=== PATIENT | female | born 1960 | race Caucasian/White ===

== ENCOUNTER 2020-02-27 08:12 | Outpatient (CLI) | payer BC, SELFPAY ==
--- NOTE | ~2020-02-27 | MM_ITS ---
EXAMINATION: MM scrn jose implant BI w nithin HISTORY: Screening mammogram TECHNIQUE: Craniocaudal and mediolateral oblique 3-D tomosynthesis images with implant displacement a nd synthetic 2-D images were generated. Craniocaudal and mediolateral oblique views of the breasts wi thout implant displacement were obtained using full field digital mammography. CAD analysis was submi tted and interpreted. COMPARISON: Comparison to multiple prior studies sequentially, with oldest reviewed study dated 02/16. BREAST PARENCHYMAL COMPOSITION: The breasts are heterogeneously dense, which may obscure small masses . FINDINGS: There are bilateral subpectoral silicone implants. There is no evidence of suspicious mass, calcification, or architectural distortion to suggest malignancy in either breast. There has been no suspicious interval change. IMPRESSION: 1. No mammographic evidence of malignancy. 2. Recommend routine screening mammography in one year. BI-RADS Category 1: Negative Reviewed, dictated and finalized at location A.
== END 2020-02-27 08:13 | disposition home or self-care (01) ==
PROVIDERS: PCP Family Medicine; Visit Provider Family Medicine
DX: Z12.31 Encounter for screening mammogram for malignant neoplasm of breast (principal)
CPT/HCPCS: 77063; 77067

== ENCOUNTER 2020-06-10 09:47 | Emergency (ER) | payer BC, SELFPAY ==
--- NOTE | ~2020-06-10 | US_ITS ---
EXAMINATION: US venous doppler LE RT DATE: 06/10/2020 11:49 INDICATION: Right lower limb pain. TECHNIQUE: Grayscale ultrasound images without and with compression and Doppler ultrasound images of the right lower extremity veins were obtained. COMPARISON: None. FINDINGS: The visualized portions of right common femoral vein, profunda (deep) femoral vein, femoral vein, pop liteal vein, peroneal veins, posterior tibial veins, and greater saphenous vein outflow are patent. IMPRESSION: 1. No deep venous thrombosis. Reviewed, dictated and finalized at location A.
--- NOTE | ~2020-06-10 | CT_ITS ---
EXAMINATION: CTA chest PE abdomen pel DATE: 06/10/2020 12:04 CDT INDICATION: Epigastric chest pain. Elevated d-dimer. TECHNIQUE: Computed tomographic angiography (CTA) of the chest, abdomen and pelvis was performed with 100 mL Omnipaque-350 intravenous contrast. The dose-length product was 379.10 mGy-cm. Maximum intens ity projection 3D-reconstructions of the aorta and other arteries were constructed by the Bilna t on a separate workstation. Automated exposure control and iterative reconstruction technique were e mployed. COMPARISON: Chest x-ray dated 06/19/2019 FINDINGS: Study is technically adequate without evidence for pulmonary embolism. Heart size normal. N o significant pleural or pericardial effusion. There are breast implants. No endobronchial lesions. N o suspicious pulmonary nodules or masses. No osteolytic or osteoblastic lesions. No thoracic lymphade nopathy. There is hepatomegaly. The spleen, pancreas, adrenal glands and kidneys are unremarkable. Gallbladder is present. There is a small periumbilical fat-containing hernia. No free air or free fluid. There i s lower lumbar spondylosis. IMPRESSION: 1. No acute abnormality of the chest, abdomen or pelvis. 2: Hepatomegaly. Reviewed, dictated and finalized at location A.
[2020-06-10 10:13] VITALS: BP 130/69; PULSE 60; RESP 16; TEMP 36.8; O2SAT 100
[2020-06-10 10:44] LABS: Basophils Percent Auto 0.4 % (0.2-1.2); Eosinophils Absolute Auto 0.2 K/mm3 (0-0.3); Eosinophils Percent Auto 3.3 % (0-4.4); Hematocrit 38.4 % (37.0-47.0); Hemoglobin 12.8 g/dL (12.0-15.0); Immature Granulocyte Absolute 0.01 K/mm3 (0.00-0.031); Immature Granulocyte Percent A 0.2 % (0-0.5); Lymphocytes Absolute Auto 1.62 K/mm3 (0.9-3.2); Lymphocytes Percent Auto 33.3 % (18.3-44.2); Mean Corpuscular HGB Conc 33.3 g/dl (32-36); Mean Corpuscular Hemoglobin 31.8 pg (26-34); Mean Corpuscular Volume 95.3 fl (80-100); Mean Platelet Volume 9.6 fl (7.4-10.4); Monocytes Absolute Auto 0.7 K/mm3 (0.1-0.6); Neutrophils Absolute Auto 2.3 K/mm3 (1.3-6.7); Neutrophils Percent Auto 47.8 % (45.5-73.1); Platelet Count Result 188 k/mm3 (150-375); Red Blood Count 4.03 M/mm3 (4.2-5.4); White Blood Count 4.9 K/mm3 (4.5-10.0)
[2020-06-10 10:49] LABS: Add Urine Microscopic? NO; Appearance Urine Clear (Clear); Bilirubin Urine Negative (Negative); Blood Urine Negative (Negative); Color Urine Yellow (Yellow); Glucose Urine UA Negative (Negative); Ketones Urine Negative (Negative); Leukocyte Esterase Ur Negative LEU/UL (Negative); Nitrate Urine Negative (Negative); Protein Urine Negative (Negative); Specific Grav Ur 1.009 (1.001-1.035); Squamous Epithelial Cell Urine Rare /hpf (Few); Urobilinogen Urine Negative mg/dL (<2.0)
[2020-06-10 10:56] LABS: Alanine Aminotransferase 22 U/L (4-35); Albumin Level 4.4 g/dL (3.5-5.1); Alkaline Phosphatase 52 U/L (38-126); Anion Gap 7 mmol/L (8-16); Aspartate Amino Transferase 26 U/L (14-36); Bilirubin,Total 0.5 mg/dL (0.2-1.3); Blood Urea Nitrogen 11 mg/dL (7-17); Calcium 9.5 mg/dL (8.4-10.2); Carbon Dioxide 30 mmol/L (22-30); Chloride 99 mmol/L (98-107); Estimated CRCL calculation 56 ml/min; Estimated Glomerular Filt Rate > 60; Glucose 97 mg/dL (65-105); Lipase 180 U/L (23-300); Potassium 3.9 mmol/L (3.4-5.0); Sodium 136 mmol/L (137-145)
--- NOTE | 2020-06-10 10:57 | ECG_ITS ---
Measurements Intervals [place] Rate: 56 P: 86 VA: 142 QRS: 17 QRSD: 95 T: 42 QT: 405 QTc: 393 Interpretive Statements SINUS BRADYCARDIA POSSIBLE LEFT ATRIAL ENLARGEMENT INCOMPLETE RIGHT BUNDLE BRANCH BLOCK BASELINE WANDER- I, II, AVR, AVL BORDERLINE ECG Electronically Signed On 06-10-2020 11:32:25 CDT by Maximo Perea D.O.
--- NOTE | 2020-06-10 11:00 | ED.ABDPAIN ---
HPI - Abdominal Pain General Chief Complaint: Abdominal Pain Stated Complaint: Achey & hurting all over Time Seen by Provider: 06/10/20 10:49 Source: patient Mode of arrival: ambulatory Limitations: no limitations History of Present Illness HPI narrative: This is a 60 year old female that presents to the ER for abdominal pain x 3 days. Reports 5 days ago she started having right foot pain. Reports the pain then radiated up into her right thigh. Reports then she started having pain in her hips bilaterally. No known injuries or trauma. Reports this pain is been intermittent. Reports a couple of days ago she started having some abdominal pain which is sharp and constant. Reports she was having diarrhea and now is constipated. Eating does make it a little worse, so she has not been eating much. Denies fever, vomiting, dysuria, hematuria, numbness, or weakness. Related Data Allergies Allergy/AdvReac Type Severity Reaction Status Date / Time No Known Allergies Allergy Verified 03/21/20 11:28 Review of Systems Review of Systems: Narrative: CONSTITUTIONAL: Denies fever CARDIOVASCULAR: Denies chest pain, or edema. RESPIRATORY: Reports dyspnea. GASTROINTESTINAL: Reports abdominal pain and diarrhea. Denies nausea, vomiting GENITOURINARY: Denies dysuria or hematuria. SKIN: Denies rash MUSCULOSKELETAL: Reports back pain, joint pain, and myalgia. NEUROLOGIC: Denies numbness, or weakness. All systems reviewed & are unremarkable except as noted in HPI and below PMFSH Social History Social History Smoking status: Never smoker Alcohol intake: current Gender identity (if verbalized by the patient): Female Exam Narrative: Exam Narrative: GENERAL: Well-appearing, well-nourished, and in no acute distress. HEAD: Normocephalic, atraumatic. EYES: EOMI. CHEST: Clear to auscultation. No respiratory distress. No wheezes rales or rhonchi HEART: Regular rate and rhythm. No murmur heard. Normal peripheral pulses. ABDOMEN: Soft, nondistended, normal active bowel sounds. Mild tenderness to palpation in the epigastrium, without guarding EXTREMITIES: Normal range of motion. No edema or erythema. Normal DP pulses SKIN: Warm, dry, no rash. NEURO: No focal deficits. Alert and oriented x3. PSYCH: Normal mood and affect Course Vital Signs Vital signs: Vital Signs Temperature 98.2 F 06/10/20 10:13 Pulse Rate 60 06/10/20 10:13 Respiratory Rate 16 06/10/20 10:13 Blood Pressure 130/69 06/10/20 10:13 Pulse Oximetry 100 06/10/20 10:13 Temperature 98.2 F 06/10/20 10:13 Pulse Rate 60 06/10/20 10:13 Respiratory Rate 16 06/10/20 10:13 Blood Pressure 130/69 06/10/20 10:13 Pulse Oximetry 100 06/10/20 10:13 MDM - Abdominal Pain MDM Narrative Medical decision making narrative: Patient presents to the emergency department for epigastric/chest pain. Also was reporting some pain in the right leg. She is afebrile and nontoxic-appearing. Vitals are normal. CBC and metabolic panel without concerning findings. UA without evidence of infection. BNP is normal. Troponin is negative. D-dimer was elevated so right lower extremity venous Doppler and CTA of the chest was obtained. No evidence of DVT. CTA of the chest/abd/pelvic is without acute abnormality of the chest, abdomen or pelvis. Patient was updated on case findings. Patient is stable and felt appropriate for further outpatient evaluation. She was given warnings to return to the ER Lab Data Attestation: I reviewed the patient's lab results. Result diagrams: 06/10/20 10:36 06/10/20 10:36 Labs: Lab Results 06/10/20 06/10/20 06/10/20 Range/Units 10:36 10:36 10:36 WBC 4.9 (4.5-10.0) K/mm3 RBC 4.03 L (4.2-5.4) M/mm3 Hgb 12.8 (12.0-15.0) g/dL Hct 38.4 (37.0-47.0) % MCV 95.3 (80-100) fl MCH 31.8 (26-34) pg MCHC 33.3 (32-36) g/dl RDW 13.0
[2020-06-10 11:14] LABS: INR 1.1; Prothrombin Time 13.4 Seconds (11.1-14.7)
[2020-06-10 11:15] LABS: Partial Thromboplastin Time 30.3 SECONDS (22.3-36.8)
[2020-06-10 11:17] LABS: D Dimer 0.64 ug/mL (<0.48)
[2020-06-10 11:25] LABS: Troponin I < 0.012 ng/mL (0.000-0.034)
[2020-06-10 11:26] LABS: NT Pro B Type Natriuretic Pept 43 PG/ML (5-100)
[2020-06-10] MEDS: FAMOTIDINE 20 MG/2 ML VIAL IV PUSH (11:27)
[2020-06-10] MEDS: SODIUM CHLORIDE 0.9% IV 1,000 ML 999 ML IV CONT (11:27)
[2020-06-10 13:29] VITALS: BP 129/70; PULSE 63; RESP 18; O2SAT 100
== END 2020-06-10 13:04 | disposition home or self-care (01) ==
PROVIDERS: Physician Assistant; Emergency Provider Emergency Medicine; PCP Family Medicine
DX: R10.13 Epigastric pain (principal); M79.604 Pain in right leg; R16.0 Hepatomegaly, not elsewhere classified; R00.1 Bradycardia, unspecified; I45.10 Unspecified right bundle-branch block; R94.31 Abnormal electrocardiogram [ECG] [EKG]
CPT/HCPCS: 36415; 71275; 74177; 80053; 81003; 81025; 83690; 83880; 84484; 85025; 85380; 85610; 85730; 93005; 93971; 96361; 96365; 96375; 99284; J0131; J7030; Q9967

== ENCOUNTER 2020-07-27 00:25 | Outpatient (CLI) | payer BC, SELFPAY ==
[2020-07-27 18:04] LABS: SARS-CoV-2 RNA PCR Negative
== END 2020-07-27 00:26 | disposition home or self-care (01) ==
LOC: ANHCOVIDDT 00:25
PROVIDERS: PCP Family Medicine; Visit Provider Internal Medicine Gastroenterology
DX: Z01.812 Encounter for preprocedural laboratory examination (principal); Z20.828 Contact with and (suspected) exposure to other viral communicable diseases
CPT/HCPCS: 87635; C9803; U0003

== ENCOUNTER 2020-07-30 01:48 | Day surgery (SDC) | payer BC, SELFPAY ==
[2020-07-24 08:33] VITALS: BMI 18.4
--- NOTE | 2020-07-30 07:09 | WPDANESEPPF ---
Anes - Initial Pre Proc Eval Procedure: Operation Date: 07/30/20 12:15 Proposed Procedures p Esophagogastroduodenoscopy & Screening Colonoscopy - Braulio Newman MD Date/Time: 07/30/20 07:10 Surgeon: Braulio Newman MD Pre Op Diagnosis: Epigastric Pain/Neoplasm Screening Patient Data Age: 60 Gender: F Height: 1.73 m Weight: 55 kg Allergies Allergy/AdvReac Type Severity Reaction Status Date / Time wheat AdvReac Diarrhea Verified 07/30/20 11:04 Home Medications Medication Instructions Recorded Confirmed Type peg 3350-electrolytes 236 240 ml PO Q10M #4000 ml 07/17/20 Rx gram-22.74 gram-6.74 gram-5.86 gram solution pravastatin 10 mg tablet 10 mg PO DAILY #30 tablet 07/23/20 07/24/20 Rx Fish Oil 2,400 mg PO DAILY 07/24/20 07/24/20 History biotin 10,000 mcg PO DAILY 07/24/20 07/24/20 History mqhubjfa-qanpajj-hnyn-lutein 1 tablet PO DAILY 07/24/20 07/24/20 History [Centrum Silver Ultra Women's] Patient hx anesthesia problems: none Family hx anesthesia problems: none PMFSH Past Medical History Medical History (Updated 07/30/20 @ 11:24 by Binh Escobar MD) History of Papanicolaou smear of cervix (11/01/12) HPV in female Pure hypercholesterolemia, unspecified Surgical History Surgical History Status post lumbar microdiscectomy Family History Family History Father Family history of elevated blood lipids Family history of malignant neoplasm Mother Family history of Alzheimer's disease Grandparent Family history of malignant neoplasm of breast Social History Social History Smoking status: Never smoker Alcohol intake: current Drinks per week: 5 Alcohol use details: WINE Substance use: never Substance use type: does not use Living arrangements: with family Gender identity (if verbalized by the patient): Female Spiritual care concerns: No Anes - Eval Final PreProcedure Day of Procedure 11/10/20 07:10 Patient weight: normal Heart: regular rate and rhythm Lungs: clear to auscultation and normal air movement Airway: Mallampati scale class II Neurological: alert and oriented Last oral intake: >/= 8 hours ASA classification: II Emergent: no Anesthetic plan: proceed Anesthesia type and monitoring: general GIVS Informed Consent: The patient's anesthetic plan and its attendant risks and benefits were discussed with the patient/family/POA. Questions were solicited and answers provided to the satisfaction of the patient/family/POA.
[2020-07-30 11:05] VITALS: BP 113/64; PULSE 60; RESP 16; TEMP 36.9; O2SAT 100; BMI 18.3
[2020-07-30] MEDS: LACTATED RINGERS 1,000 ML 150 ML IV CONT (11:18)
--- NOTE | 2020-07-30 12:36 | PM.HPGS ---
History of Present Illness History of Present Illness Consent: Risks, benefits, and alternatives have been discussed and questions answered. Patient agrees to proceed with procedure. Chief complaint: Epigastric Pain/Neoplasm Screening Narrative: Patience Augustin is a 60 year old female with epigastric pain better with ppi, also she is due to have another colonoscopy Review of Systems Constitutional: Constitutional: Denies headache(s) and Denies weakness Eyes: Eyes: Denies blurry vision ENT: Reports Normal hearing present, Denies headache(s) and Denies neck pain Cardiovascular: Cardiovascular: Denies chest pain and Denies dyspnea Respiratory: Respiratory: Denies dyspnea Gastrointestinal: Gastrointestinal: Reports no additional gastrointestinal complaints Genitourinary: Genitourinary: Denies dysuria Musculoskeletal: Musculoskeletal: Denies neck pain Integumentary/Breasts: Skin/Breast: Denies dry skin Neurologic: Reports Normal hearing present, Denies headache(s) and Denies weakness Psychiatric: Psychiatric: Denies anxiety Endocrine: Endocrine: Denies change in body appearance Hematologic/Lymphatic: Hematologic/Lymphatic: Denies easy bleeding Allergic/Immunologic: Allergic/Immunologic: Denies urticaria PMF Past Medical History Medical History (Updated 07/30/20 @ 11:24 by Binh Escobar MD) History of Papanicolaou smear of cervix (11/01/12) HPV in female Pure hypercholesterolemia, unspecified Surgical History Surgical History Status post lumbar microdiscectomy Family History Family History Father Family history of elevated blood lipids Family history of malignant neoplasm Mother Family history of Alzheimer's disease Grandparent Family history of malignant neoplasm of breast Social History Social History Smoking status: Never smoker Alcohol intake: current Drinks per week: 5 Alcohol use details: WINE Substance use: never Substance use type: does not use Living arrangements: with family Gender identity (if verbalized by the patient): Female Spiritual care concerns: No Meds Home Medications and Allergies Home Medications Medication Instructions Recorded Confirmed Type peg 3350-electrolytes 236 240 ml PO Q10M #4000 ml 07/17/20 Rx gram-22.74 gram-6.74 gram-5.86 gram solution pravastatin 10 mg tablet 10 mg PO DAILY #30 tablet 11/03/20 11/04/20 Rx Fish Oil 2,400 mg PO DAILY 07/24/20 07/24/20 History biotin 10,000 mcg PO DAILY 07/24/20 07/24/20 History wvkopzhq-idblzwv-echy-lutein 1 tablet PO DAILY 07/24/20 07/24/20 History [Centrum Silver Ultra Women's] Allergies Allergy/AdvReac Type Severity Reaction Status Date / Time wheat AdvReac Diarrhea Verified 07/30/20 11:04 Vital Signs Vital Signs - 24 hr 07/30/20 11:05 Temperature 98.4 F Pulse Rate 60 Respiratory Rate 16 Blood Pressure 113/64 Pulse Oximetry 100 Exam Const: General: comfortable and no acute distress HENMT: General nose exam: Normal nares present Eyes: General: appearance normal, both eyes and all related structures Neck: Neck: no JVD Resp: Auscultation: clear to auscultation bilaterally Cardio: Rate: regular rate Rhythm: regular rhythm GI: Inspection: non-distended GI Palp: Yes Soft to palpation Skin: General skin exam: normal color Neuro: General: gait normal Speech: normal speech Extrem: General: normal to inspection Psych: Mental Status: mental status grossly normal Assessment and Plan Assessment and plan (1) Epigastric pain: Code(s): R10.13 - Epigastric pain Status: Acute Assessment and Plan: egd with bx (2) Encounter for screening colonoscopy: Code(s): Z12.11 - Encounter for screening for malignant neoplasm of colon Status: Acute Assessment and Plan
--- NOTE | 2020-07-30 13:13 | SUR.OPER ---
EGD START 1241, END 1246 COLONOSCOPY START 1251, END 1311
[2020-07-30 13:15] VITALS: BP 92/57; PULSE 58; RESP 21; O2SAT 100
[2020-07-30 13:24] VITALS: BP 88/65; PULSE 56; RESP 21; O2SAT 100
[2020-07-30 13:35] VITALS: BP 107/67; PULSE 58; RESP 28; O2SAT 100
== END 2020-07-30 13:54 | disposition home or self-care (01) ==
PROVIDERS: PCP Family Medicine; Visit Provider Internal Medicine Gastroenterology
PROC: 0DJ08ZZ Inspection of Upper Intestinal Tract, Via Natural or Artificial Opening Endoscopic (ICD-10-PCS; CPT 43235; principal; 2020-07-30 12:15)
DX: Z12.11 Encounter for screening for malignant neoplasm of colon (principal); R10.13 Epigastric pain; D12.2 Benign neoplasm of ascending colon; D12.0 Benign neoplasm of cecum; D12.4 Benign neoplasm of descending colon; K29.50 Unspecified chronic gastritis without bleeding; K63.89 Other specified diseases of intestine; K64.8 Other hemorrhoids; E78.00 Pure hypercholesterolemia, unspecified
CPT/HCPCS: 45385; 43239; 88305; J2001; J2704; J7120

== ENCOUNTER 2021-02-28 10:47 | Outpatient (CLI) | payer BC, SELFPAY ==
--- NOTE | ~2021-02-28 | MM_ITS ---
EXAMINATION: MM scrn jose implant BI w nithin HISTORY: Screening mammogram TECHNIQUE: Craniocaudal and mediolateral oblique 3-D tomosynthesis images with implant displacement a nd synthetic 2-D images were generated. Craniocaudal and mediolateral oblique views of the breasts wi thout implant displacement were obtained using full field digital mammography. CAD analysis was submi tted and interpreted. COMPARISON: 02/27/2020, 02/2019, 02/16/2018 bilateral implant digital screening mammogram exam BREAST PARENCHYMAL COMPOSITION: The breasts are heterogeneously dense, which may obscure small masses . FINDINGS: Status post bilateral augmentation mammoplasty. There is no evidence of suspicious mass, ca lcification, or architectural distortion to suggest malignancy in either breast. There has been no peralta spicious interval change. IMPRESSION: 1. No mammographic evidence of malignancy. 2. Recommend routine screening mammography in one year. BI-RADS Category 1: Negative Reviewed, dictated and finalized at location A.
== END 2021-02-28 10:48 | disposition home or self-care (01) ==
LOC: ANHIMG 10:49
PROVIDERS: PCP Family Medicine; Visit Provider Family Medicine
DX: Z12.31 Encounter for screening mammogram for malignant neoplasm of breast (principal)
CPT/HCPCS: 77063; 77067

== ENCOUNTER → 2021-03-28 15:49 | Outpatient (CLI) | payer BC, SELFPAY ==
--- NOTE | ~2021-03-28 | XR_ITS ---
EXAMINATION: XR ankle LT min 3V DATE: 03/28/2021 16:01 INDICATION: Left ankle pain. TECHNIQUE: 4 views of left ankle were obtained. COMPARISON: None. FINDINGS: Bone alignment is normal. No fracture. Joint spaces are well maintained. There are enthesop hytes at the anterior and posterior aspects of calcaneal tuberosity. There is lateral ankle soft tiss ue swelling. IMPRESSION: 1. No fracture. Reviewed, dictated and finalized at location A. IMPRESSION: 1. No fracture.
== END ==
PROVIDERS: PCP Physician Assistant; Visit Provider Physician Assistant
DX: M25.572 Pain in left ankle and joints of left foot (principal)
CPT/HCPCS: 73610

== ENCOUNTER → 2021-04-11 11:02 | Outpatient (CLI) | payer BC, SELFPAY ==
--- NOTE | ~2021-04-11 | US_ITS ---
EXAMINATION: US venous doppler [facility] DATE: 04/11/2021 11:33 INDICATION: Left lower limb swelling TECHNIQUE: Soares scale images without and with compression and Doppler images of the left lower extrem ity veins were obtained. COMPARISON: None FINDINGS: The left common femoral vein, profunda femoral vein, femoral vein, popliteal vein, peroneal trunk, and posterior tibial veins are patent. There is thrombosis of the greater saphenous vein. IMPRESSION: 1. No evidence of deep venous thrombosis. Superficial venous thrombosis of the greater saphenous vein . Reviewed, dictated and finalized at location B. IMPRESSION: 1. No evidence of deep venous thrombosis. Superficial venous thrombosis of the greater saphenous vein.
== END ==
PROVIDERS: PCP Family Medicine; Visit Provider Physician Assistant
DX: M79.89 Other specified soft tissue disorders (principal); I82.812 Embolism and thrombosis of superficial veins of left lower extremity
CPT/HCPCS: 93971

== ENCOUNTER 2021-07-29 09:42 | Outpatient (CLI) | payer BC, SELFPAY ==
--- NOTE | 2021-07-29 11:30 | NEURO_ITS ---
Impression: # Complains of numbness of lower extremities, left more than right. # Normal nerve conduction study. # Normal needle/EMG exam. # Clinical correlation recommended. Nerve Conduction Studies Anti Sensory Summary Table Stim Site NR Peak (ms) P-T Amp (?V) Site1 Site2 Delta-P (ms) Dist (cm) Fabio (m/s) Left Sup Fibular Anti Sensory (Ant Lat Mall) 14 cm 3.7 6.8 14 cm Ant Lat Mall 3.7 16.0 43 Right Sup Fibular Anti Sensory (Ant Lat Mall) 14 cm 3.2 13.6 14 cm Ant Lat Mall 3.2 16.0 50 Left Sural Anti Sensory (Lat Mall) Calf 4.0 11.7 Calf Lat Mall 4.0 16.0 40 Right Sural Anti Sensory (Lat Mall) Calf 3.8 14.1 Calf Lat Mall 3.8 16.0 42 Motor Summary Table Stim Site NR Onset (ms) O-P Amp (mV) Site1 Site2 Delta-0 (ms) Dist (cm) Fabio (m/s) Left Peroneal Motor (Vastus Med) Ankle 5.1 4.0 Popit Ankle 8.7 39.0 45 Popit 13.8 3.2 Right Peroneal Motor (Vastus Med) Ankle 5.0 4.8 Popit Ankle 8.4 38.0 45 Popit 13.4 5.1 Left Tibial Motor (Abd Aponte Brev) Ankle 5.5 5.2 Knee Ankle 8.6 41.0 48 Knee 14.1 5.2 Right Tibial Motor (Abd Aponte Brev) Ankle 5.5 5.1 Knee Ankle 9.2 42.0 46 Knee 14.7 3.5 F Wave Studies NR F-Lat (ms) L-R F-Lat (ms) Left Peroneal (Mrkrs) (EDB) 55.98 0.53 Right Peroneal (Mrkrs) (EDB) 55.45 0.53 Left Tibial (Mrkrs) (Abd Hallucis) 54.50 0.07 Right Tibial (Mrkrs) (Abd Hallucis) 54.57 0.07 EMG Side Muscle Nerve Root Ins Act Fibs Amp Dur Recrt Comment Right AntTibialis Dp Br Fibular L4-5 Nml Nml Nml Nml Nml Right Gastroc Tibial S1-2 Nml Nml Nml Nml Nml Right Fibularis Long Sup Br Fibular L5-S1 Nml Nml Nml Nml Nml Right Flex Dig Long Tibial L5-S2 Nml Nml Nml Nml Nml Right Ext Dig Brev Dp Br Fibular L5, S1 Nml Nml Nml Nml Nml Left AntTibialis Dp Br Fibular L4-5 Nml Nml Nml Nml Nml Left Gastroc Tibial S1-2 Nml Nml Nml Nml Nml Left Fibularis Long Sup Br Fibular L5-S1 Nml Nml Nml Nml Nml Left Flex Dig Long Tibial L5-S2 Nml Nml Nml Nml Nml Left Ext Dig Brev Dp Br Fibular L5, S1 Nml Nml Nml Nml Nml Right QuadratusFem QuadFemoris L4-5, S1 Nml Nml Nml Nml Nml Left QuadratusFem QuadFemoris L4-5, S1 Nml Nml Nml Nml Nml MTDD
== END 2021-07-29 09:43 | disposition home or self-care (01) ==
LOC: ANHNEURO 09:43
PROVIDERS: PCP Family Medicine; Visit Provider Family Medicine
DX: M79.661 Pain in right lower leg (principal); M79.662 Pain in left lower leg
CPT/HCPCS: 95886; 95910

== ENCOUNTER → 2022-05-12 15:51 | Outpatient (CLI) | payer BC, SELFPAY ==
--- NOTE | ~2022-05-12 | DEXA_ITS ---
Bone Density Report Name: IVETT HAQUE Age: 62 Sex: Female Ethnicity: White Date of : 1960 Indication: postmenopausal; screening for osteoporosis; Referring Provider: Latricia Pradhan Study: Bone densitometry was performed. Exam Date: May 12, 2022 Accession number: [id number] Bone Density: Region BMD T-score Z-score Classification AP Spine (L1-L4) 0.948 -0.9 0.8 Normal Femoral Neck (Left) 0.570 -2.5 -1.0 Osteoporosis Total Hip (Left) 0.697 -2.0 -0.8 Osteopenia Femoral Neck (Right) 0.635 -1.9 -0.5 Osteopenia Total Hip (Right) 0.729 -1.7 -0.6 Osteopenia Total Hip Mean 0.713 -1.9 -0.7 Osteopenia World Health Organization criteria for BMD impression classify patients as: Normal (T-score at or above -1.0), Osteopenia (T-score between -1.0 and -2.5), or Osteoporosis (T-score at or below -2.5). 10-year Fracture Risk: FRAX not reported because: Some T-score for Spine Total or Hip Total or Femoral Neck at or below -2.5 Clinical Information Provided by Patient: Patient maximum height was 68 Menopause Age: 47 Drinks caffeinated beverages Onset of menses at age 11 Number of children 2 Impression: The patient has osteoporosis, based on the Left Femoral Neck T-score. Discussion: INCREASED RISK OF FRACTURE. BONE DENSITY IS UNDESIRABLY LOW AT ONE OR MORE SKELETAL SITES, CONSISTENT WITH POSTMENOPAUSAL OSTEOPOROSIS. This patient's lowest T-score meets the World Health Organization's (WHO) criteria for osteoporosis at one or more sites (T-score -2.5 or below). In untreated patients, the risk of osteoporotic fracture increases approximately two-fold for each 1.0 SD decrease in T-score. Low bone density is not the only risk factor for fracture; also consider factors such as patient's age, frailty or poor health, risk of falling, risk of injury, previous osteoporotic fracture, family history of osteoporosis, cigarette smoking, low body weight, etc. Not everyone with low bone mineral density has osteoporosis; osteomalacia and other metabolic bone disorders should also be considered. Patients who have osteoporosis should be evaluated for specific diseases and conditions (secondary causes) that may cause or contribute to bone loss. The [place] [employer]ocrinologists (AACE) and National Osteoporosis Foundation (NOF) recommend pharmacologic intervention for all postmenopausal women whose T-score is in this range. The patient should follow a healthful lifestyle (good nutrition with adequate calcium and vitamin D, and appropriate weight-bearing exercise). Follow-Up: Consider a repeat BMD and Vertebral Fracture Assessment (VFA) exam in 2 years or sooner if medically necessary, to reassess this patient's status. Reported by: MAGDY on 05/12/2022 4:02:00 PM.
== END ==
PROVIDERS: PCP Family Medicine; Visit Provider Family Medicine
DX: N95.1 Menopausal and female climacteric states (principal); M85.89 Other specified disorders of bone density and structure, multiple sites; M81.0 Age-related osteoporosis without current pathological fracture
CPT/HCPCS: 77080

== ENCOUNTER 2022-06-16 07:32 | Outpatient (CLI) | payer BC, SELFPAY ==
--- NOTE | ~2022-06-16 | MM_ITS ---
EXAMINATION: MM scrn jose implant BI w nithin HISTORY: Screening mammogram TECHNIQUE: Craniocaudal and mediolateral oblique 3-D tomosynthesis images with implant displacement a nd synthetic 2-D images were generated. Craniocaudal and mediolateral oblique views of the breasts wi thout implant displacement were obtained using full field digital mammography. CAD analysis was submi tted and interpreted. COMPARISON: 02/28/2021, 02/27/2020, 02/2019 bilateral implant screening mammogram examinations BREAST PARENCHYMAL COMPOSITION: The breasts are heterogeneously dense, which may obscure small masses . FINDINGS: Status post bilateral augmentation mammoplasty. There is no evidence of suspicious mass, ca lcification, or architectural distortion to suggest malignancy in either breast. There has been no peralta spicious interval change. IMPRESSION: 1. No mammographic evidence of malignancy. 2. Recommend routine screening mammography in one year. BI-RADS Category 1: Negative Reviewed, dictated and finalized at location A.
== END 2022-06-16 07:33 | disposition home or self-care (01) ==
PROVIDERS: PCP Family Medicine; Visit Provider Family Medicine
DX: Z12.31 Encounter for screening mammogram for malignant neoplasm of breast (principal)
CPT/HCPCS: 77063; 77067

== ENCOUNTER 2023-06-11 00:46 | Day surgery (SDC) | payer MEDICARE, OTHER, SELFPAY ==
[2023-05-26 12:39] VITALS: BMI 18.7
[2023-06-11 09:47] VITALS: BP 131/72; PULSE 55; RESP 16; TEMP 36.5; O2SAT 100; BMI 18.6
[2023-06-11] MEDS: LACTATED RINGERS 1,000 ML 150 ML IV CONT (10:10)
--- NOTE | 2023-06-11 10:21 | PM.HPGS ---
History of Present Illness History of Present Illness Consent: Risks, benefits, and alternatives have been discussed and questions answered. Patient agrees to proceed with procedure. Chief complaint: neoplasm screening, hx of colon polyps Narrative: Patience Augustin is a 63 year old female Presents for screening colonoscopy. Patient had colonoscopy in 2019 that revealed benign colon polyps. Patient presents today for surveillance follow-up colonoscopy. Patient reports current weight appetite and bowel movements are normal. Patient denies abdominal pain. She has had no bleeding. Patient does have a history of GE reflux identified by EGD in 2019. Currently these symptoms are stable she has no heartburn or discomfort. Family history noncontributory. There is no known family history of colon or rectal disease. Review of Systems Review of Systems: Review of systems is noncontributory. FOR[facility]LY [facility] Past Medical History Medical History History of Papanicolaou smear of cervix (11/01/12) HPV in female Pure hypercholesterolemia, unspecified Surgical History Surgical History Status post lumbar microdiscectomy (~2001) Family History Family History Father Family history of elevated blood lipids Family history of malignant neoplasm Mother Family history of Alzheimer's disease Grandparent Family history of malignant neoplasm of breast Social History Social History Smoking status: Never smoker Alcohol intake: current Drinks per week: 3 Alcohol use details: WINE Substance use: never Substance use type: does not use Lack of Transportation: No Lack of Food: Never True Current Housing: I Have Housing Concerned About Future Housing: No Difficulty Paying Gas/Electric Bills: No Difficulty Paying for Meds: No Currently Unemployed: No Education: Bachelor's Degree Difficulty w/ Childcare or Family Care: No Living arrangements: with family Additional living arrangements comments: Occupation/Education: retired Gender identity (if verbalized by the patient): Female Sexual Orientation (if Verbalized by the Patient): Straight or Heterosexual Spiritual care concerns: No Meds Home Medications and Allergies Home Medications Medication Instructions Recorded Confirmed Type Fish Oil 2,400 mg PO DAILY 07/24/20 06/01/23 History rjwzowck-bdvcpwh-jgfq-lutein tablet 1 tablet PO DAILY 07/24/20 06/01/23 History calcium carbonate 500 mg calcium 500 mg PO DAILY #90 tabs 05/14/22 06/01/23 Rx (1,250 mg) chewable tablet cholecalciferol (vitamin D3) 50 50 mcg PO DAILY #90 tabs 05/14/22 06/01/23 Rx mcg (2,000 unit) tablet pravastatin 20 mg tablet 20 mg PO DAILY #90 tabs 12/25/22 06/01/23 Rx sodium,potassium,mag sulfates 17.5 See Rx Instructions PO .COMPLEX 05/12/23 06/01/23 Rx gram-3.13 gram-1.6 gram oral soln #354 mL (Suprep Bowel Prep Kit) amoxicillin 875 mg-potassium 1 tablet PO BID #14 tabs 06/01/23 06/01/23 Rx clavulanate 125 mg tablet methylprednisolone 4 mg tablets in See Rx Instructions PO PER PKG DIR 06/01/23 06/01/23 Rx a dose pack (Medrol ([place])) #21 ea doxycycline hyclate 100 mg tablet 100 mg PO BID 10 days #20 tabs 06/07/23 Rx Allergies Allergy/AdvReac Type Severity Reaction Status Date / Time wheat AdvReac Diarrhea Verified 06/01/23 10:34 Vital Signs Vital Signs - 24 hr 06/11/23 09:47 Temperature 97.7 F Pulse Rate 55 L Respiratory Rate 16 Blood Pressure 131/72 Pulse Oximetry 100 Oxygen Delivery Room Air Exam Narrative: Physical exam reveals patient to be alert. Vital signs stable. HEENT exam is unremarkable. Patient is anicteric. Lungs are clear to auscultation and percussion. Heart is without murmur
--- NOTE | 2023-06-11 10:37 | WPDANESEPPF ---
Anes - Initial Pre Proc Eval Procedure: Operation Date: 06/11/23 11:00 Proposed Procedures p Screening Colonoscopy - Grant Grove MD Date/Time: 06/11/23 10:37 Surgeon: Grant Grove MD Pre Op Diagnosis: neoplasm screening, hx of colon polyps Patient Data Age: 63 Gender: F Height: 1.73 m Weight: 55.6 kg Last Vital Signs Temp 97.7 F 06/11/23 09:47 Pulse 55 L 06/11/23 09:47 Resp 16 06/11/23 09:47 BP 131/72 06/11/23 09:47 Pulse Ox 100 06/11/23 09:47 O2 Del Method Room Air 06/11/23 09:47 Allergies Allergy/AdvReac Type Severity Reaction Status Date / Time wheat AdvReac Diarrhea Verified 06/01/23 10:34 Home Medications Medication Instructions Recorded Confirmed Type Fish Oil 2,400 mg PO DAILY 07/24/20 06/01/23 History frygdxsc-yihwpim-lqzv-lutein tablet 1 tablet PO DAILY 07/24/20 06/01/23 History calcium carbonate 500 mg calcium 500 mg PO DAILY #90 tabs 05/14/22 06/01/23 Rx (1,250 mg) chewable tablet cholecalciferol (vitamin D3) 50 50 mcg PO DAILY #90 tabs 05/14/22 06/01/23 Rx mcg (2,000 unit) tablet pravastatin 20 mg tablet 20 mg PO DAILY #90 tabs 12/25/22 06/01/23 Rx sodium,potassium,mag sulfates 17.5 See Rx Instructions PO .COMPLEX 05/12/23 06/01/23 Rx gram-3.13 gram-1.6 gram oral soln #354 mL (Suprep Bowel Prep Kit) amoxicillin 875 mg-potassium 1 tablet PO BID #14 tabs 06/01/23 06/01/23 Rx clavulanate 125 mg tablet methylprednisolone 4 mg tablets in See Rx Instructions PO PER PKG DIR 06/01/23 06/01/23 Rx a dose pack (Medrol ([place])) #21 ea doxycycline hyclate 100 mg tablet 100 mg PO BID 10 days #20 tabs 06/07/23 Rx Patient hx anesthesia problems: none Family hx anesthesia problems: none Results Review: All pre-operative results and documents have been reviewed as part of the pre-operative evaluation. PMFSH Past Medical History Medical History History of Papanicolaou smear of cervix (11/01/12) HPV in female Pure hypercholesterolemia, unspecified Surgical History Surgical History Status post lumbar microdiscectomy (~2001) Family History Family History Father Family history of elevated blood lipids Family history of malignant neoplasm Mother Family history of Alzheimer's disease Grandparent Family history of malignant neoplasm of breast Social History Social History Smoking status: Never smoker Alcohol intake: current Drinks per week: 3 Alcohol use details: WINE Substance use: never Substance use type: does not use Lack of Transportation: No Lack of Food: Never True Current Housing: I Have Housing Concerned About Future Housing: No Difficulty Paying Gas/Electric Bills: No Difficulty Paying for Meds: No Currently Unemployed: No Education: Bachelor's Degree Difficulty w/ Childcare or Family Care: No Living arrangements: with family Additional living arrangements comments: Occupation/Education: retired Gender identity (if verbalized by the patient): Female Sexual Orientation (if Verbalized by the Patient): Straight or Heterosexual Spiritual care concerns: No Anes - Eval Final PreProcedure Day of Procedure 06/11/23 10:37 Patient weight: normal Heart: regular rate and rhythm Lungs: clear to auscultation Airway: Mallampati scale class II Neurological: alert and oriented Last oral intake: >/= 8 hours ASA classification: II Emergent: no Anesthetic plan: proceed Anesthesia type and monitoring: general GIVS and standard monitoring Results Review: All pre-operative results and documents have been reviewed as part of the pre-operative evaluation. Informed Consent: The patient's anesthetic plan and its attendant risks and benefits were discussed with the
[2023-06-11 11:29] VITALS: BP 116/69; PULSE 57; RESP 16; O2SAT 100
[2023-06-11 11:39] VITALS: BP 107/70; PULSE 55; RESP 22; O2SAT 100
[2023-06-11 11:49] VITALS: BP 112/71; PULSE 52; RESP 22; O2SAT 100
== END 2023-06-11 11:54 | disposition home or self-care (01) ==
PROVIDERS: PCP Family Medicine; Visit Provider Internal Medicine Gastroenterology
PROC: 0DJD8ZZ Inspection of Lower Intestinal Tract, Via Natural or Artificial Opening Endoscopic (ICD-10-PCS; CPT 45378; principal; 2023-06-11 11:00)
DX: Z12.11 Encounter for screening for malignant neoplasm of colon (principal); K64.8 Other hemorrhoids; Z86.010 Personal history of colon polyps; E78.00 Pure hypercholesterolemia, unspecified
CPT/HCPCS: G0105; J2704; J7120

== ENCOUNTER → 2023-08-04 12:54 | Outpatient (CLI) | payer MEDICARE, OTHER, SELFPAY ==
--- NOTE | ~2023-08-04 | MM_ITS ---
EXAMINATION: MM scrn jose implant BI w nithin HISTORY: Screening mammogram TECHNIQUE: Craniocaudal and mediolateral oblique 3-D tomosynthesis images with implant displacement a nd synthetic 2-D images were generated. Craniocaudal and mediolateral oblique views of the breasts wi thout implant displacement were obtained using full field digital mammography. CAD analysis was submi tted and interpreted. COMPARISON: 06/16/2022, 02/28/2021, 02/27/2020 BREAST PARENCHYMAL COMPOSITION: The breasts are heterogeneously dense, which may obscure small masses . FINDINGS: There is no evidence of suspicious mass, calcification, or architectural distortion to sugg est malignancy in either breast. There has been no suspicious interval change. IMPRESSION: 1. No mammographic evidence of malignancy. 2. Recommend routine screening mammography in one year. BI-RADS Category 1: Negative Reviewed, dictated and finalized at location A. LER TENDER
== END ==
PROVIDERS: PCP Family Medicine; Visit Provider Family Medicine
DX: Z12.31 Encounter for screening mammogram for malignant neoplasm of breast (principal); Z98.82 Breast implant status
CPT/HCPCS: 77063; 77067

== ENCOUNTER → 2023-11-02 10:06 | Outpatient (CLI) | payer MEDICARE, OTHER, SELFPAY ==
--- NOTE | ~2023-11-02 | XR_ITS ---
XR toe 5th RT min 2V DATE: 11/02/2023 10:29 INDICATION: Stubbed toe 7 weeks ago, persistent pain TECHNIQUE: 4 views COMPARISON: None FINDINGS: There is callus formation at a linear oblique minimally displaced fracture of the mid to di stal shaft of the proximal phalanx of the fifth digit. No other fracture or dislocation is evident. No radiopaque foreign body or subcutaneous emphysema. IMPRESSION: Healing shaft fracture of proximal phalanx Reviewed, dictated and finalized at location L. NG MACHINE OPERATOR
== END ==
PROVIDERS: PCP Podiatrist Foot & Ankle Surgery; Visit Provider Nurse Practitioner
DX: S92.511D Displaced fracture of proximal phalanx of right lesser toe(s), subsequent encounter for fracture with routine healing (principal); X58.XXXD Exposure to other specified factors, subsequent encounter
CPT/HCPCS: 73660

== ENCOUNTER 2023-11-02 11:59 | Outpatient (CLI) | payer MEDICARE, OTHER, SELFPAY ==
--- NOTE | 2023-11-02 12:10 | ECG_ITS ---
Measurements Intervals Roberts Rate: 57 P: 72 VT: 148 QRS: 4 QRSD: 98 T: 54 QT: 407 QTc: 397 Interpretive Statements SINUS BRADYCARDIA INCOMPLETE RIGHT BUNDLE BRANCH BLOCK [90+ ms QRS DURATION, TERMINAL R IN V1/V2, 40+ ms S IN I/aVL/V4/V5/V6] COMPARED TO ECG 06/10/2020 11:20:54 NO SIGNIFICANT CHANGES Electronically Signed On 11-02-2023 15:20:57 MEDICAL ADVISOR by Marcela Banerjee M.D.
== END 2023-11-02 12:00 | disposition home or self-care (01) ==
LOC: ANHCARD 12:02
PROVIDERS: PCP Podiatrist Foot & Ankle Surgery; Visit Provider Nurse Practitioner
DX: R94.31 Abnormal electrocardiogram [ECG] [EKG] (principal); I45.10 Unspecified right bundle-branch block
CPT/HCPCS: 93005

== ENCOUNTER 2024-08-07 12:56 | Outpatient (CLI) | payer MEDICARE, OTHER, SELFPAY ==
--- NOTE | ~2024-08-07 | MM_ITS ---
EXAMINATION: MM scrn jose implant BI w nithin HISTORY: Screening mammogram TECHNIQUE: Craniocaudal and mediolateral oblique 3-D tomosynthesis images with implant displacement a nd synthetic 2-D images were generated. Craniocaudal and mediolateral oblique views of the breasts wi thout implant displacement were obtained using full field digital mammography. CAD analysis was submi tted and interpreted. COMPARISON: 08/04/2023, 06/16/2022, 02/28/2021 BREAST PARENCHYMAL COMPOSITION: The breasts are extremely dense, which lowers the sensitivity of mamm ography. FINDINGS: There is no evidence of suspicious mass, calcification, or architectural distortion to sugg est malignancy in either breast. There has been no suspicious interval change. IMPRESSION: No mammographic evidence of malignancy. Recommend routine screening mammography in one year. BI-RADS Category 1: Negative Reviewed, dictated and finalized at [facility]. OTECHNICIAN
== END 2024-08-07 12:57 | disposition home or self-care (01) ==
LOC: MICIMG 12:57
PROVIDERS: PCP Family Medicine; Visit Provider Nurse Practitioner
DX: Z12.31 Encounter for screening mammogram for malignant neoplasm of breast (principal)
CPT/HCPCS: 77063; 77067

== ENCOUNTER 2024-08-09 13:15 | Outpatient (CLI) | payer MEDICARE, OTHER, SELFPAY ==
--- NOTE | ~2024-08-09 | DEXA_ITS ---
Bone Density Report Name: IVETT HAQUE Age: 64 Sex: Female Ethnicity: White Date of : 1960 Indication: osteopenia; height loss; Referring Provider: NASRA MERIDA Study: Bone densitometry was performed. Exam Date: August 09, 2024 Accession number: [id number] Bone Density: Region BMD T-score Z-score Classification AP Spine(L1-L4) 1.004 -0.4 1.5 Normal Femoral Neck (Left) 0.582 -2.4 -0.8 Osteopenia Total Hip (Left) 0.667 -2.3 -1.0 Osteopenia Femoral Neck (Right) 0.117 -6.6 -5.0 Osteoporosis Total Hip (Right) 0.229 -5.8 -4.5 Osteoporosis Total Hip Mean 0.448 -4.1 -2.8 Osteoporosis World Health Organization criteria for BMD impression classify patients as: Normal (T-score at or above -1.0), Osteopenia (T-score between -1.0 and -2.5), or Osteoporosis (T-score at or below -2.5). 10-year Fracture Risk: FRAX not reported because: Some T-score for Spine Total or Hip Total or Femoral Neck at or below -2.5 Previous Exams: Region Exam Age BMD T-score BMD Change BMD Change Date g/cm2 vs Baseline vs Previous AP Spine (L1-L4) 08/09/2024 64 1.004 -0.4 0.066 (7.0%)# 0.066 (7.0%)# 10/13/2012 52 0.938 -1.0 Total Hip(Left) 08/09/2024 64 0.667 -2.3 -0.068 (-9.3%) -0.065 (-8.9%) 01/29/2017 56 0.733 -1.7 -0.003 (-0.4%) -0.003 (-0.4%) 10/13/2012 52 0.735 -1.7 Total Hip(Right) 08/09/2024 64 0.229 -5.8 -0.524 (-69.6% -0.516 (-69.2% 01/29/2017 56 0.745 -1.6 -0.008 (-1.1%) -0.008 (-1.1%) 10/13/2012 52 0.754 -1.5 *Denotes significance at 95% confidence level, LSC for AP Spine = 0.022 g/cm2, LSC for Total Hip = 0.027 g/cm2 # Denotes dissimilar scan types or analysis methods Clinical Information Provided by Patient: Has used the following medications: Vitamin D, Calcium, multi vitamin Patient maximum height was 68.0 Menopause Age: 46 Drinks caffeinated beverages Onset of menses at age 11 Number of children 2 Impression: The patient has osteoporosis, based on the Right Femoral Neck T-score. The BMD for the Total Hip(Left) decreased, changing by -8.9% since the last DXA exam. Discussion: HIGH RISK OF FRACTURE. BONE DENSITY IS UNDESIRABLY LOW AT ONE OR MORE SKELETAL SITES, CONSISTENT WITH OSTEOPOROSIS. ALSO, BONE DENSITY IS LOWER THAN EXPECTED FOR AGE AND SEX AT ONE OR MORE SKELETAL SITES; RECOMMEND A DILIGENT SEARCH FOR SECONDARY CAUSES OF BONE LOSS. This patient's lowest T-score meets the World Health Organization's (WHO) criteria for osteoporosis at one or more sites (T-score -2.5 or below). In untreated patients, the risk of osteoporotic fracture increases approximately two-fold for each 1.0 SD decrease in T-score. Low bone density is not the only risk factor for fracture; also consider factors such as patient's age, frailty or poor health, risk of falling, risk of injury, previous osteoporotic fracture, family history of osteoporosis, cigarette smoking, low body weight, etc. Not everyone with low bone mineral density has osteoporosis; osteomalacia and other metabolic bone disorders should also be considered. Patients who have osteoporosis should be evaluated for specific diseases and conditions (secondary causes) that may cause or contribute to bone loss. The [place] Association of Clinical Endocrinologists (AACE) and National Osteoporosis Foundation (NOF) recommend pharmacologic intervention for all postmenopausal women whose T-score is in this range. Also, this patient's bone mineral density is below the range considered normal for healthy age-, sex-, and race-matched controls at least one site (Z-score -2.0 or below). This warrants careful evaluation for diseases and conditions that may contribute to accelerated bone loss. The patient should follow a healthful lifestyle (good nutrition with adequate calcium and vitamin D, and appropriate weight-bearing exercise). Follow-Up: Consider a repeat BMD and Vertebral Fracture Assessment (VFA) exam in 2 years or sooner if medically necessary, to reassess this patient's status. Reported by: CARMELLA on 08/09/2024 1:45:00 PM. Reviewed, dictated and finalized at location AKeri ANDRADE
== END 2024-08-09 13:16 | disposition home or self-care (01) ==
LOC: ANHIMG 13:16
PROVIDERS: PCP Family Medicine; Visit Provider Nurse Practitioner
DX: M85.88 Other specified disorders of bone density and structure, other site (principal); M85.852 Other specified disorders of bone density and structure, left thigh; M81.0 Age-related osteoporosis without current pathological fracture
CPT/HCPCS: 77080

== ENCOUNTER 2025-04-23 10:03 | Outpatient (CLI) | payer MEDICARE, OTHER, SELFPAY ==
--- NOTE | 2025-04-23 10:07 | EST_ITS ---
Patient Info Name: Patience Augustin Age: 65 years : 1960 Gender: Female Ht: 68 in Wt: 125 lbs BSA: 1.64 m2 HR: 55 bpm BP: 124 / 79 mmHg Exam Date: 04/23/2025 10:07 AM Patient Status: O Admit Date: 04/23/2025 Exam Type: CA stress test treadmill A treadmill exercise stress test was performed. Staff Attending Provider: Claribel Sena Exercise Technologist: Brittney Fisher Exercise Physician: Maximo Perea DO Summary 1. 1. Negative Yordy exercise stress test for ischemic ST changes by ECG criteria. 2. 2. Excellent functional capacity, achieving 10 METs of workload. 3. 3. Appropriate HR response to exercise. 4. 4. Appropriate HR recovery at 1 minute post exercise. 5. 5. No imaging with stress testing. 6. 6. Patient informed of the above results. Protocol: Yordy Stress ECG Details Stage: REST Duration (min): 0 min : 32 sec Speed (mph): 0.0 Grade (%): 0 HR (bpm): 54 SBP (mmHg): --- DBP (mmHg): --- METS: --- Stage: REST Duration (min): 0 min : 52 sec Speed (mph): 0.0 Grade (%): 0 HR (bpm): 56 SBP (mmHg): --- DBP (mmHg): --- METS: --- Stage: REST Duration (min): 10 min : 48 sec Speed (mph): 0.0 Grade (%): 0 HR (bpm): 61 SBP (mmHg): 124 DBP (mmHg): 79 METS: --- Stage: STAGE 1 Duration (min): 1 min : 0 sec Speed (mph): 1.7 Grade (%): 10 HR (bpm): 82 SBP (mmHg): 124 DBP (mmHg): 79 METS: --- Stage: STAGE 1 Duration (min): 2 min : 0 sec Speed (mph): 1.7 Grade (%): 10 HR (bpm): 89 SBP (mmHg): 124 DBP (mmHg): 79 METS: --- Stage: STAGE 1 Duration (min): 3 min : 0 sec Speed (mph): 1.7 Grade (%): 10 HR (bpm): 90 SBP (mmHg): 165 DBP (mmHg): 81 METS: --- Stage: STAGE 2 Duration (min): 1 min : 0 sec Speed (mph): 2.5 Grade (%): 12 HR (bpm): 100 SBP (mmHg): 165 DBP (mmHg): 81 METS: --- Stage: STAGE 2 Duration (min): 2 min : 0 sec Speed (mph): 2.5 Grade (%): 12 HR (bpm): 107 SBP (mmHg): 165 DBP (mmHg): 79 METS: --- Stage: STAGE 2 Duration (min): 3 min : 0 sec Speed (mph): 2.5 Grade (%): 12 HR (bpm): 110 SBP (mmHg): 165 DBP (mmHg): 79 METS: --- Stage: STAGE 3 Duration (min): 1 min : 0 sec Speed (mph): 3.4 Grade (%): 14 HR (bpm): 123 SBP (mmHg): 188 DBP (mmHg): 79 METS: --- Stage: STAGE 3 Duration (min): 2 min : 0 sec Speed (mph): 3.4 Grade (%): 14 HR (bpm): 125 SBP (mmHg): 188 DBP (mmHg): 79 METS: --- Stage: STAGE 3 Duration (min): 3 min : 0 sec Speed (mph): 3.4 Grade (%): 14 HR (bpm): 129 SBP (mmHg): 189 DBP (mmHg): 77 METS: --- Stage: STAGE 4 Duration (min): 0 min : 9 sec Speed (mph): 4.2 Grade (%): 16 HR (bpm): 131 SBP (mmHg): 189 DBP (mmHg): 77 METS: --- Stage: RECOVERY Duration (min): 0 min : 50 sec Speed (mph): 0.0 Grade (%): 0 HR (bpm): 113 SBP (mmHg): 189 DBP (mmHg): 77 METS: --- Stage: RECOVERY Duration (min): 1 min : 50 sec Speed (mph): 0.0 Grade (%): 0 HR (bpm): 86 SBP (mmHg): 189 DBP (mmHg): 77 METS: --- Stage: RECOVERY Duration (min): 2 min : 50 sec Speed (mph): 0.0 Grade (%): 0 HR (bpm): 72 SBP (mmHg): 189 DBP (mmHg): 77 METS: --- Stage: RECOVERY Duration (min): 3 min : 50 sec Speed (mph): 0.0 Grade (%): 0 HR (bpm): 67 SBP (mmHg): 189 DBP (mmHg): 77 METS: --- Stage: RECOVERY Duration (min): 4 min : 50 sec Speed (mph): 0.0 Grade (%): 0 HR (bpm): 63 SBP (mmHg): 130 DBP (mmHg): 75 METS: --- Stage: RECOVERY Duration (min): 4 min : 54 sec Speed (mph): 0.0 Grade (%): 0 HR (bpm): 62 SBP (mmHg): 130 DBP (mmHg): 75 METS: --- Rest HR: 61 bpm Peak HR: 132 bpm Rest Sys BP: 124 mmHg Peak Sys BP: 189 mmHg Max Pred HR: 153 bpm % Max Pred HR: 86 % Target HR: 130 bpm Max RPP: 24,948 bpm*mmHg Mcdaniel Score: 5 Termination Reason: Reached target heart rate or workload Cardiac Symptoms: None Max ST Seg Deviation: -0.80 mm Total Time: 9 min : 9 sec Rest Peter BP: 79 mmHg Peak Peter BP: 77 mmHg Angina Score: None Total METS: 10.3 Resting ECG Sinus rhythm. Stress ECG No ST changes. Arrhythmias None. Report Signatures
--- OUTSIDE RECORDS SUMMARY | 2025-04-23 10:25 | XMS_ITS | Clinical Summary ---
Author Organization [facility] [employer] Address [address] [place] [address] Care Team Providers Care Top Frame Maker Name Role Phone Latricia Pradhan DO Primary Care Provider [phone] Source Comments [facility] [employer],non-owned Affiliates and Associated Physician Practices is amultiple site organization consisting of ambulatory clinics and hospital sitesin [place], [place], [place] and [place]. This disclosure is being madepursuant to the Care Everywhere program and may not contain all information available regarding this patient. Last updated 18.[facility] [employer] Allergies No known active allergies Medications * Be aware that medications may not be up to date on this document. Alwaysverify current medications with the patient. hydrocodone-paty taminophen (NORCO) 5-325 MG tablet Take 1-2 Tabs by mouth every 4 hours as needed for Pain. 40 1 04/17/2010 Active diclofenac sodium (VOLTAREN) 50 MG tablet Take 1 Tab by mouth daily with food. 60 1 04/17/2010 Active methocarbamol (ROBAXIN) 500 MG tablet Take 1 Tab by mouth every 6 hours as needed for Muscle Spasms. 40 Tab 1 05/27/2010 Active ondansetron, disintegrating, (Zofran ODT) 4 MG tablet Take 1 (one) tablet by mouth every 6 hours as needed for Nausea/Vomiti ng Allow tablet to dissolve on the tongue 10 tablet 12/09/2023 Active Active Problems Problem Noted Date Diagnosed Date Displacement of lumbar inter vertebral disc without myelopathy 04/28/2010 Resolved Problems Problem Noted Date Diagnosed Date Resolved Date Displacement of lumbar inter vertebral disc without myelopathy 04/07/2010 04/17/2010 Encounters Date Type Department Care Team Description 04/20/2025 Travel from Last 3 Months Social History Tobacco Use Types Packs/Day Years Used Date Smoking Tobacco: Never Alcohol Use Standard Drinks/Week Comments Yes 2.5 (1 standard drink = 0.6 oz p ure alcohol) Comments No Sex and Gender Information Value Date Recorded Sex Assigned at Not on file 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 Gender Identity Not on file Sexual Orientation Not on file Last Filed Vital Signs Vital Sign Reading Time Taken Comments Blood Pressure 152/75 12/09/2023 10:01 AM CDT Pulse 66 12/09/2023 10:01 AM CDT Temperature 37 C (98.6 F) 12/09/2023 10:01 AM CDT Respiratory Rate 9 12/09/2023 10:01 AM CDT Oxygen Saturation 97% 12/09/2023 10:01 AM CDT Inhaled Oxygen Concentration - - Weight 56.7 kg (125 lb) 04/28/2010 10:23 AM CDT Height 172.7 cm (5' 8) 04/28/2010 10:23 AM CDT Body Mass Index 19.01 04/28/2010 10:23 AM CDT Plan of Treatment Health Maintenance Due Date Last Done Comments BONE DENSITY TESTING 1960 COLOGUARD (AGES 45-75) - COLON CA SCREENING 1960 COLON MONITORING 1960 COLONOSCOPY - COLON CA SCREENING 1960 CT COLONOGRAPHY - COLON CA SCREENING 1960 Colorectal Cancer Screening 1960 FIT - COLON CA SCREENING 1960 FLEX SIG - COLON CA SCREENING 1960 LIPID TESTING 1960 MAMMOGRAM 1960 MEDICARE AWV 12 MONTHS 1960 HEPATITIS C SCREENING 02/18/1976 DTAP/TDAP/TD VACCINES (1 - Tdap) 1977 PNEUMOCOCCAL VACCINE 50+ (1 of 1 - PCV) 02/23/2008 ZOSTER VACCINE (1 of 2) 02/23/2008 COVID-19 VACCINE (3 - season) 2024 12/23/2020, 12/01/2020 DEPRESSION SCREENING 09/20/2024 INFLUENZA VACCINE (#1) 2025 3, 07/25/2021, 07/24/2020, Additional history exists Respiratory Syncytial Virus (RSV) Vaccine Pt: or over 60 yrs (1 - 1-dose 75+ series) 2033 HEPATITIS B VACCINE Aged Out No longe r eligible based on patient's age to complete this topic HIB VACCINE Aged Out No longer eligi ble based on patient's age to complete this topic HPV VACCINE Aged Out No longer eligi ble based on patient's age to complete this topic MENINGOCOCCAL (Group B) VACCINE SHARED DECISION-MAKING Aged Out No longer eligible based on patient's age to complete this topic MENINGOCOCCAL GROUPS A/C/Y/W VACCINE Aged Out No longer eligible based on patient's age to complete this topic Insurance MEDICARE [facility] [place] [id number] Advance Directives * Full Code (Latest Code Status on File) Date Activated Date Inactivated Comments 04/17/2010 12:15 PM 04/18/2010 6:26 AM Care Teams Top Frame Maker Relationship Specialty Start Date End Date Latricia Pradhan DO [address] [place], [place] [id number] PCP - General Family Medicine 12/09/23
--- OUTSIDE RECORDS SUMMARY | 2025-04-23 10:25 | XMS_ITS | Clinical Summary ---
Author Organization [facility] Address [address] [place] [id number] Care Team Providers Care Child Protective Services Social Worker Name Role Phone Latricia Pradhan Primary Care Provider [phone] Social History Tobacco Use Types Packs/Day Years Used Date Smoking Tobacco: Never Assessed Comments Unknown Sex and Gender Information Value Date Recorded Sex Assigned at Not on file Legal Sex Female 3:45 PM CDT Gender Identity Not on file Sexual Orientation Not on file Plan of Treatment Health Maintenance Due Date Last Done Comments DTAP/TDAP/TD VACCINES (1 - Tdap) 1977 BREAST CANCER SCREENING 1998 COLORECTAL SCREENING 2003 Colorectal Cancer Screening 2003 FIT-DNA Q 3 years 2003 FIT/FOBT Q 1 year 2003 Flex Sig/CT Colonography Q 5 years 2003 PNEUMOCOCCAL VACCINE 50+ YEARS (1 of 1 - PCV) 02/23/20 08 ZOSTER VACCINE (1 of 2) 02/23/2008 OSTEOPOROSIS SCREENING 2023 INFLUENZA VACCINE (#1) 2025 RSV VACCINE (60+ or ) (1 - 1-dose 75+ series) 2033 Insurance [employer] BLUE ACCESS CHOICE Care Teams Child Protective Services Social Worker Relationship Specialty Start Date End Date Latricia Pradhan DO [address] [place] [id number] PCP - General Family Practice 02/03/21
== END 2025-04-23 10:04 | disposition home or self-care (01) ==
LOC: ANHCARD 10:04
PROVIDERS: PCP Nurse Practitioner; Visit Provider Nurse Practitioner
DX: R07.9 Chest pain, unspecified (principal)
CPT/HCPCS: 93017

== ENCOUNTER 2025-05-23 08:13 | Outpatient (CLI) | payer MEDICARE, OTHER, SELFPAY ==
--- NOTE | ~2025-05-23 | US_ITS ---
Examination: US abdomen complete Clinical History: K21.9 - Gastro-esophageal reflux disease without esophagitis . Comparison: None Technique: Complete abdominal sonography Findings: Liver: Enlarged. Echogenic. No intrahepatic biliary ductal dilatation. Normal hepatopedal flow main portal vein. Common duct: Normal caliber, 3 mm. Gallbladder: No stones. No wall thickening. No pericholecystic fluid. Spleen: Unremarkable. Pancreas: Unremarkable. Kidneys: Unremarkable. Aorta: No aneurysmal dilatation. Retrohepatic IVC: Unremarkable. IMPRESSION: 1. No acute findings. Reviewed, dictated and finalized at location R. IMPRESSION: 1. No acute findings.
== END 2025-05-23 08:14 | disposition home or self-care (01) ==
LOC: GOSHIMG 08:14
PROVIDERS: PCP Nurse Practitioner; Visit Provider Internal Medicine Gastroenterology
DX: K21.9 Gastro-esophageal reflux disease without esophagitis (principal); K58.9 Irritable bowel syndrome, unspecified; R07.89 Other chest pain
CPT/HCPCS: 76700

== ENCOUNTER 2025-06-28 00:26 | Day surgery (SDC) | payer MEDICARE, OTHER, SELFPAY ==
[2025-06-19 14:32] VITALS: BMI 18.7
[2025-06-28 11:49] VITALS: BP 126/69; PULSE 69; RESP 18; TEMP 36.6; O2SAT 99
[2025-06-28] MEDS: LACTATED RINGERS 1,000 ML 150 ML IV CONT (12:05)
--- NOTE | 2025-06-28 12:05 | WPDANESEPPF ---
Anes - Initial Pre Proc Eval Procedure: Operation Date: 06/28/25 14:45 Proposed Procedures p Esophagogastroduodenoscopy EGD - Braulio Newman MD Date/Time: 06/28/25 12:05 Surgeon: Braulio Newman MD Pre Op Diagnosis: GERD, IBS, Other Chest Pain Patient Data Age: 65 Gender: F Height: 1.73 m Weight: 58 kg Last Vital Signs Temp 98 F 06/28/25 11:49 Pulse 69 06/28/25 11:49 Resp 18 06/28/25 11:49 BP 126/69 06/28/25 11:49 Pulse Ox 99 06/28/25 11:49 O2 Del Method Room Air 06/28/25 11:49 Allergies Allergy/AdvReac Type Severity Reaction Status Date / Time wheat AdvReac Diarrhea Verified 06/28/25 11:47 Home Medications ?Medication ?Instructions ?Recorded ?Confirmed ?Type pravastatin 20 mg tablet 20 mg PO DAILY #90 tabs 02/06/25 06/19/25 Rx Patient hx anesthesia problems: none Family hx anesthesia problems: none Results Review: All pre-operative results and documents have been reviewed as part of the pre-operative evaluation. [facility] Past Medical History Medical History (Updated 05/16/25 @ 16:10 by Braulio Newman MD) Non-cardiac chest pain Celiac disease HPV in female History of Papanicolaou smear of cervix (11/01/12) Pure hypercholesterolemia, unspecified Surgical History Surgical History Status post lumbar microdiscectomy (~2001) Family History Family History Father Family history of elevated blood lipids Family history of malignant neoplasm Mother Family history of Alzheimer's disease Grandparent Family history of malignant neoplasm of breast Social History Social History Smoking status: Never smoker Alcohol intake: current Drinks per week: 3 Alcohol use details: WINE Substance use: never Substance use type: does not use Lack of Transportation: No Lack of Food: Never True Current Housing: I Have Housing Concerned About Future Housing: No Difficulty Paying Gas/Electric Bills: No Difficulty Paying for Meds: No Currently Unemployed: No Education: Bachelor's Degree Difficulty w/ Childcare or Family Care: No Living arrangements: with family Additional living arrangements comments: Occupation/Education: retired Gender identity (if verbalized by the patient): Female Sexual Orientation (if Verbalized by the Patient): Straight or Heterosexual Spiritual care concerns: No Anes - Eval Final PreProcedure Day of Procedure 06/28/25 12:05 Patient weight: normal Lungs: normal air movement Airway: Mallampati scale class II Neurological: alert and oriented Last oral intake: >/= 8 hours ASA classification: II Emergent: no Anesthetic plan: proceed Anesthesia type and monitoring: general GIVS and standard monitoring Results Review: All pre-operative results and documents have been reviewed as part of the pre-operative evaluation. Hyperlipidemia. Informed Consent: The patient's anesthetic plan and its attendant risks and benefits were discussed with the patient/family/POA. Questions were solicited and answers provided to the satisfaction of the patient/family/POA.
--- NOTE | 2025-06-28 12:07 | PM.HPGS ---
History of Present Illness History of Present Illness Consent: Risks, benefits, and alternatives have been discussed and questions answered. Patient agrees to proceed with procedure. Chief complaint: GERD, IBS, Other Chest Pain Narrative: Patience Augustin is a 65 year old female here for egd, last one 2019 with gastritis, no h pylori, no celiac. Recently with non cardiac CP Review of Systems Review of Systems: All systems reviewed & are unremarkable except as noted in HPI and below PMFSH Past Medical History Medical History (Updated 05/16/25 @ 16:10 by Braulio Newman MD) Non-cardiac chest pain Celiac disease HPV in female History of Papanicolaou smear of cervix (11/01/12) Pure hypercholesterolemia, unspecified Surgical History Surgical History Status post lumbar microdiscectomy (~2001) Family History Family History Father Family history of elevated blood lipids Family history of malignant neoplasm Mother Family history of Alzheimer's disease Grandparent Family history of malignant neoplasm of breast Social History Social History Smoking status: Never smoker Alcohol intake: current Drinks per week: 3 Alcohol use details: WINE Substance use: never Substance use type: does not use Lack of Transportation: No Lack of Food: Never True Current Housing: I Have Housing Concerned About Future Housing: No Difficulty Paying Gas/Electric Bills: No Difficulty Paying for Meds: No Currently Unemployed: No Education: Bachelor's Degree Difficulty w/ Childcare or Family Care: No Living arrangements: with family Additional living arrangements comments: Occupation/Education: retired Gender identity (if verbalized by the patient): Female Sexual Orientation (if Verbalized by the Patient): Straight or Heterosexual Spiritual care concerns: No Meds Home Medications and Allergies Home Medications ?Medication ?Instructions ?Recorded ?Confirmed ?Type pravastatin 20 mg tablet 20 mg PO DAILY #90 tabs 02/06/25 06/19/25 Rx Allergies Allergy/AdvReac Type Severity Reaction Status Date / Time wheat AdvReac Diarrhea Verified 06/28/25 11:47 Vital Signs Vital Signs - 24 hr 06/28/25 11:49 Temperature 98 F Pulse Rate 69 Respiratory Rate 18 Blood Pressure 126/69 Pulse Oximetry 99 Oxygen Delivery Room Air Exam Const: General: comfortable and no acute distress HENMT: Face/Nose/Sinus: Normal nares present Eyes: General: appearance normal, both eyes and all related structures Neck: Neck: no JVD Resp: Auscultation: clear to auscultation bilaterally Cardio: Rate: regular rate Rhythm: regular rhythm GI: Inspection: non-distended GI Palp: Yes Soft to palpation Skin: General skin exam: normal color Extrem: General: normal to inspection Psych: Mental Status: mental status grossly normal Assessment and Plan Assessment and plan (1) Non-cardiac chest pain: Code(s): R07.89 - Other chest pain Status: Acute Assessment and Plan: egd with bx
--- NOTE | 2025-06-28 12:18 | S_PTH ---
PATIENT: Patience Augustin LOC: [facility]#:[id number] AGE/SX: 65/F ROOM: RE06/28/[address]: Braulio Newman MD : 1960 BED: DIS: 06/28/2025 SPEC #: [id number] RECD: 06/28/25 13:39 STATUS: JOVON REAria #: [id number] NIC: 06/28/25 12:[address]: Braulio Newman DEPT: [facility] Surgical RECD BY: Dora Roland ENTERED: 06/28/25 13:40 SP TYPE: Surgical OTHR DR: Claribel Sena, SRINIVASAN Tissues: A - Small Bowel Bx B - Gastric Biopsy Procedures: Hematoxylin and Eosin Stain Gross and Microscopic Level 4
[2025-06-28 12:24] VITALS: BP 89/53; PULSE 62; RESP 20; O2SAT 100
[2025-06-28 12:34] VITALS: BP 94/58; PULSE 64; RESP 18; O2SAT 100
[2025-06-28 12:44] VITALS: BP 110/67; PULSE 62; RESP 16; O2SAT 100
== END 2025-06-28 12:55 | disposition home or self-care (01) ==
PROVIDERS: PCP Nurse Practitioner; Visit Provider Internal Medicine Gastroenterology
PROC: 0DJ08ZZ Inspection of Upper Intestinal Tract, Via Natural or Artificial Opening Endoscopic (ICD-10-PCS; CPT 43239; principal; 2025-06-28 14:45)
DX: R07.89 Other chest pain (principal); K90.0 Celiac disease; E78.00 Pure hypercholesterolemia, unspecified; Z98.1 Arthrodesis status; Z80.3 Family history of malignant neoplasm of breast
CPT/HCPCS: 43239; 88305; J2003; J2405; J2704; J7120

== ENCOUNTER 2025-08-09 10:36 | Outpatient (CLI) | payer MEDICARE, OTHER, SELFPAY ==
--- NOTE | ~2025-08-09 | MM_ITS ---
EXAMINATION: MM scrn jose implant BI w nithin INDICATION: Asymptomatic, referred for screening mammogram COMPARISON: 08/07/2024 through 02/27/2020 TECHNIQUE: Digital Breast Tomosynthesis CC, MLO, and implant displaced CC and MLO views of Both breasts were obtained with computer-aided detection to assist in interpretation of the study. FINDINGS: The breasts are heterogeneously dense, which may obscure small masses. Bilateral breast Retropectoral Silicone implants in place appears intact. No focal dominant mass, architectural distortion, or suspicious microcalcifications are identified. There are no features to suggest malignancy. IMPRESSION: 1. No evidence of malignancy in the breasts. 2. Both breasts Retropectoral Silicone implants appears intact. Recommend continued screening mammography BI-RADS 1, NEGATIVE Reviewed, dictated and finalized at location B. [employer]
== END 2025-08-09 10:37 | disposition home or self-care (01) ==
PROVIDERS: PCP Nurse Practitioner; Visit Provider Nurse Practitioner
DX: Z12.31 Encounter for screening mammogram for malignant neoplasm of breast (principal); Z98.82 Breast implant status
CPT/HCPCS: 77063; 77067

== ENCOUNTER 2025-09-18 08:19 | Outpatient (CLI) | payer MEDICARE, OTHER, SELFPAY ==
--- NOTE | ~2025-09-18 | CT_ITS ---
EXAMINATION: CT abdomen pelvis wo con DATE: 09/18/2025 08:34 INDICATION: Unspecified abdominal pain for one year. TECHNIQUE: Computed tomography (CT) of the abdomen and pelvis was performed without intravenous contrast. Automated exposure control and iterative reconstruction technique were employed. The dose-length product was 268.25 mGy-cm. COMPARISON: CT abdomen and pelvis 06/10/2020 FINDINGS: The visualized portions of the lung bases demonstrate mild atelectasis. No pleural effusion. The heart size is normal. No pericardial effusion. There are bilateral breast implants. The liver, gallbladder, spleen, pancreas, adrenal glands, and kidneys are normal. There is no urolithiasis. Ther e are no dilated loops of bowel. The appendix is not visualized. There is an umbilical hernia containing fat. There are no pathologically enlarged lymph nodes. There is no free intraperitoneal fluid. There is severe lower lumbar spondylosis. There is mild chronic anterior wedging of T12 vertebral body. IMPRESSION: 1. Umbilical hernia containing fat. Reviewed, dictated and finalized at location E. [employer]ENT
== END 2025-09-18 08:20 | disposition home or self-care (01) ==
LOC: MICIMG 08:20
PROVIDERS: PCP Nurse Practitioner; Visit Provider Nurse Practitioner
DX: K42.9 Umbilical hernia without obstruction or gangrene (principal)
CPT/HCPCS: 74176